=== PATIENT | female | born 1985 | race Asian ===

== ENCOUNTER 2023-08-10 00:20 | Emergency (ER) | payer OTHER ==
[~2023-08-10] VITALS: Ht 160 cm; Wt 46.7 kg
[2023-08-10 00:25] VITALS: BP 142/66; PULSE 85; RESP 17; TEMP 97.8; O2SAT 100
[2023-08-10 01:26] VITALS: O2SAT 100
[2023-08-10] MEDS ORDERED: KETOROLAC 60 MG/2 ML VIAL IM ONE (02:00)
[2023-08-10] MEDS ORDERED: NAPR-54 PO (03:45)
== END 2023-08-10 03:50 | disposition home or self-care (01) ==
LOC: MED 00:20
DX: S13.4XXA Sprain of ligaments of cervical spine, initial encounter (principal); S09.90XA Unspecified injury of head, initial encounter; M25.511 Pain in right shoulder; Z79.1 Long term (current) use of non-steroidal anti-inflammatories (NSAID); V89.2XXA Person injured in unspecified motor-vehicle accident, traffic, initial encounter; Y93.89 Activity, other specified; Y92.410 Unspecified street and highway as the place of occurrence of the external cause; Y99.8 Other external cause status
CPT/HCPCS: 70450; 72050; 96372; 99285; J1885